=== PATIENT | male | born 1985 | race Caucasian/White ===

== ENCOUNTER 2024-03-06 02:42 | Emergency (ER) | payer OTHER ==
[~2024-03-06] VITALS: Ht 180.3 cm; Wt 159.1 kg
[~2024-03-06 02:42] MED LIST: ACIPHEX20 MG PO; AMOXICILLIN 50500 MG PO; ANUSOL-HC SUPPO25 MG RC; BUSPAR10 MG PO; CELEBREX 200MG200 MG PO; FIORICET 325 MG1 TAB PO; INDERAL10 MG PO; KLONOPIN 0.5MG0.5 MG PO; LEXAPRO 10MG10 MG PO; LIDOCANE; MEN'S MULTIVIT1 EAC1 PO; MUCINEX 60600 MG/TAB PO; NICODERM C21 MG/PATC TD; NORCO 325 MG-51 TAB PO; OMNICEF 300MG300 MG PO; PERCOCET 325 MG1 TA2 PO; PERCOCET 5/321 UDTAB PO; PRIL40; TRUVADA PO; ZYRTEC 10MG10 MG PO
[2024-03-06 02:50] VITALS: BP 141/88; PULSE 101; TEMP 98.1
[2024-03-06] MEDS ORDERED: Clindamycin 150 MG CAP PO ONE (03:15)
[2024-03-06] MEDS ORDERED: DOXYCYCLINE HY100 MG PO (03:57)
[2024-03-06] MEDS ORDERED: Doxycycline Monohydrate 100 MG CAP PO ONE (04:00)
== END 2024-03-06 04:04 | disposition home or self-care (01) ==
LOC: COL.ER 02:42
DX: L73.9 Follicular disorder, unspecified (principal)